=== PATIENT | female | born 1975 | race Caucasian/White ===

== ENCOUNTER 2020-02-03 19:02 | Emergency (ER) | payer BC, MEDICAID, OTHER ==
[2020-02-03] MEDS ORDERED: Famotidine/PF 20 mg/2ml Vial ONE (19:30)
== END 2020-02-03 21:48 | disposition home or self-care (01) ==
LOC: ERS 19:02
DX: T78.40XA Allergy, unspecified, initial encounter (principal); I10 Essential (primary) hypertension; F41.9 Anxiety disorder, unspecified; F17.210 Nicotine dependence, cigarettes, uncomplicated; Z79.899 Other long term (current) drug therapy
CPT/HCPCS: 96374; S0028

== ENCOUNTER 2020-07-18 19:08 | Emergency (ER) | payer BC ==
[2020-07-18] MEDS ORDERED: Morphine 4 MG/ML VIAL ONE (20:14)
[2020-07-18] MEDS ORDERED: Ondansetron PF 4 MG/2 ML Vial ONE (20:14)
--- NOTE | 2020-07-18 20:57 | CT ---
CT BRAIN NONCONTRAST: DATE: 07/18/2020 HISTORY: 45-year-old female with persistent posttraumatic headache after fall 3 days ago FINDINGS: There is no evidence of acute intra-axial or extra-axial hemorrhage. There is no midline shift or any other mass effect. There is no extra-axial fluid collection. There is no evidence of obstructive hydrocephalus. Calvarium is intact. IMPRESSION: No acute intracranial findings.
--- NOTE | 2020-07-18 21:01 | CT ---
CT CERVICAL SPINE NONCONTRAST: DATE: 07/18/2020 HISTORY: cervical trauma: 45-year-old female with persistent posttraumatic cervicalgia after fall 3 days ago. FINDINGS: There are no jumped or perched facets. There is no evidence of acute fracture. The vertebral body hei ghts are maintained. There is no prevertebral soft tissue swelling. Moderate degenerative disc disease at C5-6. Moderate right facet DJD at C2-3, C3-4, C4-5, and C7-T1 IMPRESSION: 1. No evidence of acute fracture or acute traumatic subluxation. 2. Cervical spondylosis at levels mentioned above.
--- NOTE | 2020-07-18 21:49 | MRI ---
MR the lumbar spine without contrast: 07/18/2020 History: Fall, soreness and stiffness in the back COMPARISON: None. TECHNIQUE: Multiplanar multisequence MR images were obtained of lumbar spine without IV contrast FINDINGS: On the basis of 5 lumbar type vertebral bodies, conus medullaris terminates at [id number] level. Sagittal STIR imaging demonstrates no focal area of osseous marrow edema. T12-L1:Intervertebral disc height and signal intensity within normal limits with no significant centr al canal or neural foraminal stenosis. L1-2:Intervertebral disc height and signal intensity within normal limits with no significant central canal or neural foraminal stenosis. L2-3:Intervertebral disc height and signal intensity appears within normal limits with no significant central canal or neural foraminal stenosis. L3-4:Intervertebral disc height and signal intensity appears within normal limits with no significant central canal or neural foraminal stenosis. L4-5: Intervertebral disc height and signal intensity appears within normal limits with no significan t central canal or neural foraminal stenosis. L5-S1:Intervertebral disc height and signal intensity appear within normal limits with no significant central canal or neural foraminal stenosis Image retroperitoneal structures demonstratea partially imaged T2 hyperintense structure within the p osterior right kidney measuring 1.9 cm suggesting a cyst. There is a 2.0 cm T2 hyperintense cystic structure within the left hemipelvis suggesting a small cyst/dominant follicle.. IMPRESSION: No significant central canal or neural foraminal stenosis within the lumbar spine.
[2020-07-18] MEDS ORDERED: Pantoprazole 40 MG VIAL ONE (23:01)
== END 2020-07-18 23:18 | disposition home or self-care (01) ==
LOC: ERS 19:08
DX: S39.012A Strain of muscle, fascia and tendon of lower back, initial encounter (principal); S30.0XXA Contusion of lower back and pelvis, initial encounter; S09.90XA Unspecified injury of head, initial encounter; I10 Essential (primary) hypertension; F17.210 Nicotine dependence, cigarettes, uncomplicated; Z79.899 Other long term (current) drug therapy; W19.XXXA Unspecified fall, initial encounter
CPT/HCPCS: 70450; 72125; 72148; 96374; 96375; C9113; J2270; J2405

== ENCOUNTER 2022-03-28 07:57 | Outpatient (CLI) | payer BC | END 2022-03-28 07:58 | disposition home or self-care (01) | LOC: RAD-FRANK 07:57 | PROVIDERS: ATTEND Nurse Practitioner Family | DX: R06.02 Shortness of breath (principal) | CPT/HCPCS: 71046 ==